=== PATIENT | male | born 1965 | race Caucasian/White ===

== ENCOUNTER 2016-06-28 05:10 | Emergency (ER) | payer BC, OTHER ==
[2016-06-28] MEDS ORDERED: NS 1,000 ML IV ONE (05:44)
--- NOTE | 2016-06-28 05:50 | EDPHY ---
H & P Stated Complaint: DIARRHEA, ABD PAIN, X1WK, SOMETIMES RED AND BLACK, PEPTO 3 HR AGO, Source: Patient Exam Limitations: No limitations - Personal History Current Tetanus/Diphtheria Vaccine: Yes Tetanus Vaccine Date: 2008 - Medical/Surgical History Hx Asthma: No Hx Chronic Respiratory Disease: No Hx Diabetes: No Hx Cardiac Disease: No Hx Renal Disease: No Hx Cirrhosis: No Hx Alcoholism: No Hx HIV/AIDS: No Hx Splenectomy or Spleen Trauma: No Other PMH: ANTERIO SEPTAL DEFECT/OHS, CARDIAC ABLATION, LEFT EAR "TAE SURGERY", PNA, L5S1 back surgery, aortic Anurysm - Social History Smoking Status: Never smoked Time Seen by Provider: 06/28/16 05:21 HPI/ROS: HPI The patient presents with bloody diarrhea which has been present for the last several days and is now associated with abdominal cramping and chills for the last 1 day. He had a colonoscopy performed about 2 months ago which demonstrated esophagitis and polyps in his colon per his report. Ever since his colonoscopy, he says he is having 5-6 bowel movements a day, previously he was having 2 bowel movements a day. However for the last 1 week his stools have been very loose and have occasionally had bright red blood in them. The stool is now becoming more bloody. He has had chills but not a fever. He is not on any blood thinners. No recent travel outside of the country, no camping, no hospitalizations. REVIEW OF SYSTEMS Constitutional: No fever, + chills. Eyes: No discharge. ENT: No sore throat. Cardiovascular: No chest pain, no palpitations. Respiratory: No cough, no shortness of breath. Gastrointestinal: + abdominal pain, no vomiting. Genitourinary: No hematuria. Musculoskeletal: No back pain. Skin: No rashes. Neurological: No headache. PHYSICAL General Appearance: Alert, no distress Eyes: Pupils equal and round no pallor or injection ENT, Mouth: Mucous membranes moist Respiratory: There are no retractions, lungs are clear to auscultation Cardiovascular: Regular rate and rhythm Gastrointestinal: Diffuse tenderness, no masses, bowel sounds normal Neurological: A&O, moves all extremities Skin: Warm and dry, no rashes Musculoskeletal: Neck is supple non tender Extremities: symmetrical, full range of motion Psychiatric: Patient is oriented X 3, there is no agitation (Riguzzi,Katie) Constitutional: Initial Vital Signs Temperature (C) 37.7 C 06/28/16 05:16 Heart Rate 89 06/28/16 05:16 Respiratory Rate 18 06/28/16 05:16 Blood Pressure 158/94 H 06/28/16 05:16 O2 Sat (%) 93 06/28/16 05:16 O2 Delivery Mode Room Air Allergies/Adverse Reactions: codeine Allergy (Severe, Verified 08/29/14 17:07) "I Get Violent" oxycodone HCl [From Percocet] Allergy (Severe, Verified 08/29/14 17:07) "I Get Violent" Penicillins Allergy (Mild, Verified 08/29/14 17:07) Epistaxis Home Medications: Medication Instructions Recorded Zolpidem Tartrate [Ambien 10 mg] 10 mg PO HS PRN 03/14/12 Ibuprofen [Advil] 600 mg PO TID #0 tablet 04/30/14 Albuterol Hfa Anes Only [Proair 2 puffs IH QID PRN #1 mdi 08/29/14 Hfa Anes Only] Azithromycin [Zithromax 250 mg 250 mg PO DAILY #6 tab 08/29/14 tab(RX)] Benzonatate [Tessalon Pearles] 200 mg PO TID #21 capsule 08/29/14 Hydrocodone/Acetaminophen [Bruceton 1 - 2 tab PO HS PRN #14 tab 08/29/14 5/325 (RX)] Medical Decision Making ED Course/Re-evaluation: 5:45 a.m.- Initial patient encounter. He declines pain medication at this time. We will plan for labs and an IV to be placed. 6:45 a.m.- Patient is feeling better with IV fluids. Labs have been checked and show a mild leukocytosis, hemoglobin is stable as compared to prior. His stool is negative for any blood. He is currently awaiting CT scan. His case will be signed out to Dr. Oliveros pending CT scan results. If it is normal, I plan to discharge him home and await stool cultures to guide further treatment. 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 (Katie Cohen) 700: The patient is signed out to me at change of shift. The patient is awaiting CT results. Per Dr. Cohen if the CT is negative the patient can be discharged home. IV the patient's documentation laboratory results. He is noted to have leukocytosis at 13,000. Occult stool negative for blood On recheck of his laboratory studies his C diff was negative. CT of the abdomen and pelvis: Please refer the dictated report by Dr. Quinn Betancourt. No significant diverticular disease. No diverticulitis or diverticular abscess. No visible source of bleeding. 810: I discussed the results with the patient. I answered all his questions. He was lying comfortably in the bed. He states he did feel better. It was noted on Dr. Cohen's exam that he had mild abdominal tenderness on exam. On my exam the patient appeared well. He was resting comfortably in the bed. No respiratory distress. Abdominal exam is soft, nontender nondistended. It was benign. I discussed the need for close follow-up with the patient. He was given warnings prior to leaving. He will return with worsening symptoms. He will follow up with his primary care physician on Wednesday. (Dipika Oliveros) Differential Diagnosis: This is a 51-year-old man with history of ASD status post repair and cardiac ablation who presents from home with progressive diarrhea, which has now become bloody and associated with crampy abdominal pain. Differential diagnosis includes colitis, diverticulitis, bleeding diverticuli, bleeding AVM. (Katie Cohen) Patient presents emergency department with abdominal pain. He is feeling better on my exam. Per Dr. Cohen the patient was to be discharged with a negative CT scan. After his essentially negative imaging, the patient was feeling better. His abdomen was soft, nontender and nondistended. I did not see any significant diverticulitis or diverticular abscess. There is no mass or obvious malignancy. There is no signs of obstruction or perforation. Patient did not appear septic or toxic. (Dipika Oliveros) - Data Points Laboratory Results: Laboratory Results 06/28/16 05:50 06/28/16 05:50 06/28/16 06/28/16 05:50 05:30 WBC 13.13 H 10^3/uL (3.80-9.50) RBC 6.92 H 10^6/uL (4.40-6.38) Hgb 15.2 g/dL (13.7-17.5) Hct 46.9 % (40.0-51.0) MCV 67.8 L fL (81.5-99.8) MCH 22.0 L pg (27.9-34.1) MCHC 32.4 g/dL (32.4-36.7) RDW 19.1 H % (11.5-15.2) Plt Count 131 L 10^3/uL (150-400) MPV TNP Neut % (Auto) 84.3 H % (39.3-74.2) Lymph % (Auto) 5.6 L % (15.0-45.0) [place]eman % (Auto) 7.8 % (4.5-13.0) Eos % (Auto) 1.7 % (0.6-7.6) Baso % (Auto) 0.3 % (0.3-1.7) Nucleat RBC Rel Count 0.0 % (0.0-0.2) Absolute Neuts (auto) 11.08 H 10^3/uL (1.70-6.50) Absolute Lymphs (auto) 0.73 L 10^3/uL (1.00-3.00) Absolute Monos (auto) 1.02 H 10^3/uL (0.30-0.80) Absolute Eos (auto) 0.22 10^3/uL (0.03-0.40) Absolute Basos (auto) 0.04 10^3/uL (0.02-0.10) Absolute Nucleated RBC 0.00 10^3/uL (0-0.01) Immature Gran % 0.3 % (0.0-1.1) Immature Gran # 0.04 10^3/uL (0.00-0.10) Platelet Estimate ADEQUATE (ADEQ) Microcytic Cells 1+ H Smear Review By Pending Sodium 138 mEq/L (134-144) Potassium 3.9 mEq/L (3.5-5.2) Chloride 107 mEq/L (97-110) Carbon Dioxide 21 L mEq/l (22-31) Anion Gap 10 mEq/L (8-16) BUN 14 mg/dL (7-23) Creatinine 1.2 mg/dL (0.7-1.3) Estimated GFR > 60 Glucose 110 H mg/dL (70-100) Calcium 8.2 L mg/dL (8.5-10.4) Total Bilirubin 0.9 mg/dL (0.1-1.4) Conjugated Bilirubin 0.1 mg/dL (0.0-0.5) Unconjugated Bilirubin 0.8 mg/dL (0.0-1.1) AST 31 IU/L (17-59) ALT 55 IU/L (21-72) Alkaline Phosphatase 78 IU/L (38-126) Total Protein 6.4 g/dL (6.3-8.2) Albumin 3.6 g/dL (3.5-5.0) Stool Occult Bld Scrn NEGATIVE (NEGATIVE) C. difficile Tox (PCR) NEGATIVE (NEGATIVE) Medications Given: Discontinued Medications Sodium Chloride (Ns) 1,000 mls @ 0 mls/hr IV ONCE ONE PRN Reason: Wide Open Stop: 06/28/16 05:45 Last Admin: 06/28/16 06:00 Dose: 1,000 mls Departure - Departure Disposition: Home, Routine, Self-Care Clinical Impression: Lower abdominal pain, Bloody diarrhea Condition: Good Instructions: Acute Diarrhea (ED) Additional Instructions: Return with increasing abdominal pain, nausea, vomiting, fever or chills. You need close follow-up with your primary care physician on Wednesday. Referrals: [facility] [Provider Group] - As per Instructions Jose Stevens MD [Primary Care Provider] - 1-2 days without fail
[2016-06-28] MEDS ORDERED: IOPAMIDOL (ISOVUE-300) 50 ML VIAL IV ONE (06:01)
[2016-06-28 06:05] LABS: % IMMATURE GRANULYOCYTES 0.3 % (0.0-1.1); ABSOLUTE IMMATURE GRANULOCYTES 0.04 10^3/uL (0.00-0.10); ADD DIFF? NO; ADD MORPH? YES; ADD SCAN? NO; ATYPICAL LYMPHOCYTE FLAG 10 (0-99); FRAGMENT RBC FLAG 20 (0-99); HEMATOCRIT 46.9 % (40.0-51.0); HEMOGLOBIN 15.2 g/dL (13.7-17.5); LEFT SHIFT FLG 10 (0-99); LIPEMIA HEMOLYSIS FLAG 80 (0-99); MEAN CELL HEMOGLOBIN CONCENTR. 32.4 g/dL (32.4-36.7); PLATELET CLUMPS FLAG 20 (0-99); PLATELET COUNT 131 10^3/uL (150-400); RED BLOOD CELL COUNT 6.92 10^6/uL (4.40-6.38); RED CELL DISTRIBUTION WIDTH 19.1 % (11.5-15.2)
[2016-06-28 06:10] LABS: OCCULT BLOOD FECES NEGATIVE (NEGATIVE)
[2016-06-28 06:11] LABS: ALANINE AMINOTRANSFERASE 55 IU/L (21-72); ALBUMIN 3.6 g/dL (3.5-5.0); ALKALINE PHOSPHATASE 78 IU/L (38-126); ANION GAP 10 mEq/L (8-16); ASPARTATE AMINOTRANSFERASE 31 IU/L (17-59); BILIRUBIN,TOTAL 0.9 mg/dL (0.1-1.4); BILIRUBIN-CONJUGATED 0.1 mg/dL (0.0-0.5); BILIRUBIN-UNCONJUGATED 0.8 mg/dL (0.0-1.1); CALCIUM 8.2 mg/dL (8.5-10.4); CARBON DIOXIDE 21 mEq/l (22-31); CHLORIDE 107 mEq/L (97-110); CREATININE 1.2 mg/dL (0.7-1.3); GLOMERULAR FILTRATION RATE > 60; GLUCOSE 110 mg/dL (70-100); POTASSIUM 3.9 mEq/L (3.5-5.2); SODIUM 138 mEq/L (134-144); TOTAL PROTEIN 6.4 g/dL (6.3-8.2)
[2016-06-28 06:16] LABS: MEAN CELL VOLUME 67.8 fL (81.5-99.8)
[2016-06-28 06:59] LABS: MICROCYTES 1+; PLATELET ESTIMATE ADEQUATE (ADEQ)
[2016-06-28 07:19] LABS: CLOSTRIDIUM DIFFICILE DNA NEGATIVE (NEGATIVE)
[2016-06-28 08:02] VITALS: BP 167/104; PULSE 97; RESP 22; TEMP 98.6; O2SAT 94
--- NOTE | 2016-06-28 11:31 | CT ---
CT Scan of the Abdomen and Pelvis With Contrast Indication: Abdominal pain with nausea and vomiting in a 51-year-old male. Technique: Multidetector CT images of the abdomen and pelvis were obtained following the uneventful i ntravenous administration of 99 mL Isovue-300 contrast. No oral contrast was administered. Axial imag es are obtained at 5 mm intervals and reformatted at 1.5 mm thickness. The examination is reviewed on the workstation at multiple window/level settings. Sagittal and coronal reformations are performed. Dose reduction techniques were utilized for this examination. Comparison to the previous noncontrast CT abdomen and pelvis March 08, 2010. Abdomen: Lung bases: Normal. No pleural fluid. A few scattered diverticula are noted throughout the colon with no convincing evidence of diverticuli tis. There is very minimal edema in the paracolic fat adjacent to the sigmoid colon of uncertain sign ificance. A small hiatal hernia is unchanged. Liver: Normal. Biliary system: Normal gallbladder. No intra or extrahepatic dilatation. Spleen: Normal. Pancreas: Normal. Adrenals: Normal. Kidneys: The kidneys perfuse symmetrically without obstruction or nephrolithiasis. There has been dev elopment of a 17 mm diameter, well-circumscribed low-attenuation area on the periphery of the left ki dney with Hounsfield unit density estimated at -13. This presumably represents a small angiomyolipoma . This could be followed with a repeat study in one year or could be more definitively evaluated with an MRI. Abdominal Aorta: No aneurysm. No bowel obstruction, ascites, or retroperitoneal lymphadenopathy. CT Pelvis Findings: A normal appendix is visualized. No free fluid is seen. There is mild prostatic e nlargement. A few surgical clips are seen in the left inguinal region unchanged. Degenerative changes are seen in the spine with disk space loss and vacuum phenomenon noted at L4-L5 and at L5-S1. Impression: 1. Scattered diverticulosis without diverticulitis. Minimal edema in the paracolic fat in the sigmoid of doubtful but uncertain significance. 2. 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 3. See above report for additional findings. The study was performed as an emergency on-call case and discussed by telephone with Dr. Oliveros at 0 800 hours. The final interpretation is concordant with the original communication.
== END 2016-06-28 08:40 | disposition home or self-care (01) ==
DX: R10.30 Lower abdominal pain, unspecified (principal); R19.7 Diarrhea, unspecified
CPT/HCPCS: Q9967

== ENCOUNTER → 2017-12-13 | Outpatient (CLI) | payer OTHER ==
[~2017-12-13] MED LIST: IOPAMIDOL (ISOVUE 370) 100 ML BTL IV ONE
== END ==
LOC: FIMAGING 09:01
PROVIDERS: ATTEND Internal Medicine Interventional Cardiology
DX: I71.2 Thoracic aortic aneurysm, without rupture (principal); K44.9 Diaphragmatic hernia without obstruction or gangrene; Q21.1 Atrial septal defect
CPT/HCPCS: Q9967

== ENCOUNTER 2018-05-25 13:46 | Day surgery (SDC) | payer OTHER ==
[2018-05-25] MEDS ORDERED: ATROPINE SULFATE 1 MG/10 ML SYR IVP ONE (13:52)
[2018-05-25] MEDS ORDERED: NS 500 ML IV ONE (13:52)
[2018-05-25] MEDS ORDERED: MIDAZOLAM 2 MG/2 ML VIAL IVP ONE (13:52)
[2018-05-25] MEDS ORDERED: BENZOCAINE UNIT DOSE SPRAY HURRICAINE MM ONE (13:52)
[2018-05-25] MEDS ORDERED: fentaNYL 100 MCG/2 ML INJ IVP ONE (13:52)
[2018-05-25 14:35] LABS: INR 1.2 (0.83-1.16); PROTIME(PATIENT) 15.4 SEC (12.0-15.0)
[2018-05-25] MEDS ORDERED: PROPOFOL 200 MG/20 ML VIAL ONE (15:15)
[2018-05-25] MEDS ORDERED: NALOXONE HCL 0.4 MG/ML INJ IVP PRN (15:36)
[2018-05-25] MEDS ORDERED: ONDANSETRON 4 MG/2 ML VIAL IVP PRN (15:36)
--- NOTE | 2018-05-25 15:38 | PDANEPAE ---
ANE History of Present Illness LISA + CV ANE Past Medical History - Cardiovascular History Hx Hypertension: Yes Hx Arrhythmias: Yes Hx CHF / Valvular Disease: Yes - Pulmonary History Hx Oxygen in Use at Home: No Hx Sleep Apnea: Yes - Endocrine History Hx Diabetes: No - Chronic Pain History Chronic Pain: No ANE Review of Systems Review of Systems: ANE Patient History - Allergies Allergies/Adverse Reactions: codeine Allergy (Severe, Verified 08/29/14 17:07) "I Get Violent" oxycodone HCl [From Percocet] Allergy (Severe, Verified 08/29/14 17:07) "I Get Violent" Penicillins Allergy (Mild, Verified 08/29/14 17:07) Epistaxis - Home Medications Home Medications: Apixaban [Eliquis] 5 mg PO BID 05/25/18 [Last Taken 05/25/18 09:00] Bystolic 5 mg (*) 05/25/18 [Last Taken 05/25/18 08:00] Cialis 05/25/18 [Last Taken 05/25/18 09:00] Losartan Potassium 05/25/18 [Last Taken 05/25/18 09:00] - Smoking Hx Smoking Status: Never smoked ANE Labs/Vital Signs - Labs Result Diagrams: 05/25/18 14:15 - Vital Signs Height: 190.5 cm Weight: 108.862 kg ANE Physical Exam - Airway Neck exam: FROM Mallampati Score: Class 2 Mouth exam: normal dental/mouth exam - Pulmonary Pulmonary: clear to auscultation - Cardiovascular Cardiovascular: regular rate and rhythym - ASA Status ASA Status: III ANE Anesthesia Plan Anesthesia Plan: GA with mask
--- NOTE | 2018-05-25 15:51 | PDHPUP ---
History & Physical Update H&P update statement: This history and physical update is based on an assessment of the patient which was completed after admission or registration (within 24 hours), but prior to the surgery/procedure. H&P update: H&P reviewed & patient examined, no change in patient's condition since H&P completed
--- NOTE | 2018-05-25 15:56 | PDTEE1 ---
LISA Cardioversion Procedure Procedure: electrical cardioversion, transesophageal echo Indications: atrial fibrillation Consent: signed and in chart Anticoagulation: eliquis Procedural Details: Pads were placed in anterior-posterior position. LISA probe was advanced and standard images obtained. There is no evidence of left atrial or left atrial appendage thrombus. Synchronized cardioversion attempt #1: 200J Results: normal sinus rhythm Conclusions: successful LISA cardioversion Patient Problems: Problems Problem Status Onset Headache Acute
--- NOTE | 2018-05-25 16:02 | POSTANESTH ---
Post Anesthetic Evaluation Cardiovascular Status: Normal, Stable Respiratory Status: Normal, Stable Level of Consciousness/Mental Status: Can Participate in Eval, Mildly Sleepy, Arousable Pain Control: Adequate, Prn Tx Ordered Nausea/Vomiting Control: Adequate, Prn Tx Ordered Complications Possibly Related to Anesthesia: None Noted
--- NOTE | 2018-05-25 16:58 | ECHO ---
[email or web address] [place] [id number] Main: [phone] Fax: Transesophageal Echocardiography Name: CODY ROQUE MR#: [id number] Study Date: 05/25/2018 Study Time: 03:44 PM Date of : 1965 Age: 53 year(s) Height: ( ) Weight: ( ) BSA: Gender: Male Examination: LISA Indication: CV Image Quality: Adequate Contrast: Requested by: Elvis Dang Heart Rate: Rhythm: BP: / Procedure Staff Knot Picker Cloth: Tamar Delgadillo RDCS Reading Physician: Elvis Dang MD Requesting Provider: LISA Exam Details Conclusions: Proceed with cardioversion Measurements: Chambers Valvular Assessment AV/MV Valvular Assessment TV/PV Normal Normal Normal Name Value Range Name Value Range Name Value Range Additional Measurements: Findings: Left Ventricle: Normal size left ventricle. Normal global systolic LV function. Right Ventricle: Normal size right ventricle. Normal RV function. Left Atrial Appendage: The left atrial appendage is unilobular. No thrombus in left appendage. l1n (No Signature Object) Patient: CODY ROQUE Study Date: 05/25/2018 Page 1 of 1 03:44 PM [id number]
--- NOTE | 2018-05-25 17:58 | CPEKG ---
Test Reason : OPEN Blood Pressure : / mmHG Vent. Rate : 057 BPM Atrial Rate : 000 BPM P-R Int : 211 ms QRS Dur : 103 ms QT Int : 432 ms P-R-T Axes : 000 074 037 degrees QTc Int : 421 ms Atrial fibrillation Confirmed by Cosme Murillo ([id number]) on 05/25/2018 5:58:04 PM Referred By: Confirmed By:Cosme Murillo
--- NOTE | 2018-05-25 17:59 | CPEKG ---
Test Reason : OPEN Blood Pressure : / mmHG Vent. Rate : 066 BPM Atrial Rate : 066 BPM P-R Int : 218 ms QRS Dur : 093 ms QT Int : 422 ms P-R-T Axes : 053 074 036 degrees QTc Int : 443 ms Sinus rhythm First degree AV block Left atrial enlargement ST elev, probable normal early repol pattern Confirmed by Cosme Murillo ([id number]) on 05/25/2018 5:59:21 PM Referred By: Confirmed By:Cosme Murillo
== END 2018-05-25 17:15 | disposition home or self-care (01) ==
LOC: FCATH 13:46
PROVIDERS: ATTEND Internal Medicine Interventional Cardiology
DX: I48.0 Paroxysmal atrial fibrillation (principal); I35.1 Nonrheumatic aortic (valve) insufficiency; I71.2 Thoracic aortic aneurysm, without rupture; F41.9 Anxiety disorder, unspecified; Z79.01 Long term (current) use of anticoagulants; Z87.74 Personal history of (corrected) congenital malformations of heart and circulatory system
CPT/HCPCS: J0461; J2704

== ENCOUNTER 2018-08-16 09:58 | Day surgery (SDC) | payer OTHER | END 2018-08-16 14:08 | disposition home or self-care (01) | LOC: FCATH 09:58 ==

== ENCOUNTER 2018-11-09 08:30 | Inpatient (IN) | payer OTHER | END 2018-11-24 14:09 | disposition home or self-care (01) | LOC: FCATH 08:30 → F2N 11-10 07:06 → F2W 09:40 → F2N 11-10 16:36 ==

== ENCOUNTER → 2018-11-29 | Outpatient (CLI) | payer OTHER | LOC: FIMAGING 09:44 ==